=== PATIENT | female | born 1970 | race Caucasian/White ===

== ENCOUNTER 2022-04-03 10:30 | Emergency (ER) | payer BC ==
[2022-04-03] MEDS ORDERED: Zofran 4 MG/2 ML VIAL IV ONE ×3 (11:03→21:58)
[2022-04-03] MEDS ORDERED: Sodium Chloride 0.9% 1000 ML 1,000 ML IV STA (11:04)
[2022-04-03] MEDS ORDERED: Zofran 4 MG/2 ML VIAL ONE ×3 (11:07→21:53)
[2022-04-03] MEDS ORDERED: Sodium Chloride 0.9% 1000 ML 1,000 ML ONE (11:07)
--- NOTE | 2022-04-03 11:10 | ERPHSYRPT ---
- History of Present Illness Source: patient, other Exam Limitations: no limitations Patient Subjective Stated Complaint: pt here binge drinking for the last 5 days, she was at work and told a co worker she needed help. she has been sober for 6 years Triage Nursing Assessment: pt walked in with a co worker, anxious, poor historian, states she has been binge drinking for 5 days, denies being suicidal, face mask in place, skin w.d.p. resp easy, unsteady on feet at times Timing/Duration: day(s), gradual onset, worse Severity of Symptoms-Max: moderate Severity of Symptoms-Current: moderate Associated Symptoms: anxiety, frustrated Previous symptoms: same symptoms as today Hx Tetanus, Diphtheria Vaccination/Date Given: No Hx Influenza Vaccination/Date Given: Yes Hx Pneumococcal Vaccination/Date Given: No Immunizations Up to Date: Yes <JERMAINE BUENROSTRO - Last Filed: 04/03/22 18:38> <MARINO HUNT - Last Filed: 04/03/22 20:14> - History of Present Illness Time Seen by Provider: 04/03/22 11:03 Physician History: 51-year-old female with a history of GERD, alcoholism who has been sober for almost 6 years presented in the ER with a coworker after she confessed binge drinking for the last 5 days. She is drinking almost half a gallon of vodka daily. Patient reports she has been frustrated and had a lot of stress going on and started drinking to get some relief. She does not want to drink and does need some help. Denies any suicidal or homicidal ideation. Denies any drug use. Last drink was prior to arrival. (JERMAINE BUENROSTRO) Allergies/Adverse Reactions: No Known Drug Allergies Allergy (Unverified 04/03/22 10:52) Home Medications: No Reportable Medications [No Reported Medications] 04/03/22 [History] Travel Risk - International Travel Have you traveled outside of the country in past 3 weeks: No - Coronavirus Screening Are you exhibiting any of the following symptoms?: No - Vaccine Status Have you recieved a Covid-19 vaccination: Yes [employer]: Pfizer - Vaccination Dates Date of 2cond Vaccination (if applicable): 2020 <JERMAINE BUENROSTRO - Last Filed: 04/03/22 18:38> - Past Medical History Pertinent Past Medical History: No - Past Surgical History Past Surgical History: Yes Female Surgical History: Other Other Surgical History: ovaries removed - Social History Smoking Status: Never smoker Exposure to second hand smoke: No Drug Use: none Patient Lives Alone: No - Female History Hx Last Menstrual Period: post Hx Now: No <JERMAINE BUENROSTRO - Last Filed: 04/03/22 18:38> - Review of Systems Constitutional: No Symptoms Eyes: No Symptoms Ears, Nose, & Throat: No Symptoms Respiratory: No Symptoms Cardiac: No Symptoms Abdominal/Gastrointestinal: No Symptoms Genitourinary Symptoms: No Symptoms Musculoskeletal: No Symptoms Skin: No Symptoms Neurological: No Symptoms Psychological: Anxiety, Depression, Emotional Lability Endocrine: No Symptoms Hematologic/Lymphatic: No Symptoms Immunological/Allergic: No Symptoms <JERMAINE BUENROSTRO - Last Filed: 04/03/22 18:38> - Physical Exam General Appearance: no apparent distress, alert, anxiety Eyes, Ears, Nose, Throat Exam: normal ENT inspection, TMs normal, pharynx normal, moist mucous membranes Neck Exam: normal inspection, non-tender, supple, carotid bruit Respiratory Exam: normal breath sounds, lungs clear Cardiovascular Exam: regular rate/rhythm, normal heart sounds Gastrointestinal/Abdominal Exam: soft, normal bowel sounds, No tenderness Extremities Exam: normal inspection Current Suicidality: denies suicide plan Neurological Exam: alert, normal mood/affect, manager money II-XII nml as tested, oriented x 3 Appearance: appropriate appearance, appropriate insight, neat, no memory impairment Behavior/Eye Contact/Speech: alert & cooperative, good eye contact, normal speech Thoughts/Hallucinations: normal thought pattern, no apparent hallucination Skin Exam: normal color SpO2 Interpretation: normal SpO2: 97 O2 Delivery: Room Air <JERMAINE BUENROSTRO - Last Filed: 04/03/22 18:38> - Nursing Vital Signs Nursing Vital Signs: Initial Vital Signs Temperature 97.8 F 04/03/22 10:35 Pulse Rate 97 H 04/03/22 10:35 Respiratory Rate 18 04/03/22 10:35 Blood Pressure 148/96 04/03/22 10:35 O2 Sat by Pulse Oximetry 97 04/03/22 10:35 Pain Scale Pain Intensity 0 - Course Nursing assessment & vital signs reviewed: Yes <MARINO HUNT - Last Filed: 04/03/22 20:14> Ordered Tests: Active Orders 24 hr Category Date Time Status CBC W DIFF Stat Lab 04/03/22 11:03 Completed CMP Stat Lab 04/03/22 11:03 Completed CULTURE,URINE Stat Lab 04/03/22 11:06 Received ETHYL ALCOHOL Stat Lab 04/03/22 11:03 Completed LIPASE Stat Lab 04/03/22 11:04 Completed UA W/RFX CULTURE Stat Lab 04/03/22 11:06 Completed Urine Triage Profile Stat Lab 04/03/22 11:06 Completed Medication Summary Discontinued Medications Generic Name Dose Route Start Last Admin Trade Name Kiersten PRN Reason Stop Dose Admin Sodium Chloride 1,000 mls @ 999 mls/hr 04/03/22 11:04 04/03/22 13:03 Sodium Chloride 0.9% 1000 Ml IV 04/03/22 12:04 Infused .Q1H1M STA Infusion Sodium Chloride Confirm 04/03/22 11:07 Sodium Chloride 0.9% 1000 Ml Administered 04/03/22 11:08 Dose 1,000 mls @ ud .ROUTE .STK-MED ONE Lorazepam Confirm 04/03/22 18:29 Lorazepam 2 Mg/1 Ml 2 Mg Vial Administered 04/03/22 18:30 Dose 2 mg .ROUTE .STK-MED ONE Lorazepam 1 mg 04/03/22 19:04 04/03/22 19:05 Lorazepam 2 Mg/1 Ml 2 Mg Vial IV 04/03/22 19:05 1 mg STAT ONE Administration Ondansetron HCl 4 mg 04/03/22 11:03 04/03/22 11:10 Ondansetron Hcl 4 Mg/2 Ml Vial IV 04/03/22 11:04 4 mg STAT ONE Administration Ondansetron HCl Confirm 04/03/22 11:07 Ondansetron Hcl 4 Mg/2 Ml Vial Administered 04/03/22 11:08 Dose 4 mg .ROUTE .STK-MED ONE Ondansetron HCl 4 mg 04/03/22 17:33 04/03/22 17:35 Ondansetron Hcl 4 Mg/2 Ml Vial IV 04/03/22 17:34 4 mg STAT ONE Administration Ondansetron HCl Confirm 04/03/22 17:35 Ondansetron Hcl 4 Mg/2 Ml Vial Administered 04/03/22 17:36 Dose 4 mg .ROUTE .STK-MED ONE Lab/Rad Data: Laboratory Result Diagrams 04/03/22 11:03 04/03/22 11:03 Laboratory Results 04/03/22 04/03/22 04/03/22 Range/Units 19:00 11:06 11:06 WBC (4.0-10.5) x10^3/uL RBC (4.1-5.4) x10^6/uL Hgb (12.0-16.0) g/dL Hct (35-47) % MCV (78-100) fL MCH (26-32) pg MCHC (32-36) g/dL RDW (11.5-14.0) % Plt Count (150-450) x10^3/uL MPV (7.5-11.0) fL Gran % (36.0-66.0) % Immature Gran % (Auto) (0.00-0.4) % Nucleat RBC Rel Count (0.00-0.1) % Eos # (Auto) (0-0.5) x10^3/uL Immature Gran # (Auto) (0.00-0.03) x10^3u/L Absolute Lymphs (auto) (1.0-4.6) x10^3/uL Absolute Monos (auto) (0.0-1.3) x10^3/uL Absolute Nucleated RBC (0.00-0.01) x10^3u/L Lymphocytes % (24.0-44.0) % Monocytes % (0.0-12.0) % Eosinophils % (0.00-5.0) % Basophils % (0.0-0.4) % Absolute Granulocytes (1.4-6.9) x10^3/uL Basophils # (0-0.4) x10^3/uL Sodium (137-145) mmol/L Potassium (3.5-5.1) mmol/L Chloride (98-107) mmol/L Carbon Dioxide (22-30) mmol/L Anion Gap (5-15) MEQ/L BUN (7-17) mg/dL Creatinine (0.52-1.04) mg/dL Estimated GFR ML/MIN Glucose (74-106) mg/dL Calcium (8.4-10.2) mg/dL Total Bilirubin (0.2-1.3) mg/dL AST (14-36) U/L ALT (0-35) U/L Alkaline Phosphatase (38-126) U/L Serum Total Protein (6.3-8.2) g/dL Albumin (3.5-5.0) g/dL Lipase (23-300) U/L Urinalys Dipstick Clnc MAIN LAB Urine Color YELLOW (YELLOW) Urine Appearance CLEAR (CLEAR) Urine pH 6.5 (5-6) Ur Specific [employer] <=1.005 (1.005-1.025) POC Urine Protein Conf NEGATIVE (Negative) Urine Ketones NEGATIVE (NEGATIVE) Urine Nitrite NEGATIVE (NEGATIVE) Urine Bilirubin NEGATIVE (NEGATIVE) Urine Urobilinogen 0.2 (0-1) mg/dL Urine Leukocytes MODERATE (NEGATIVE) Urine WBC (Auto) 3-5 (0-5) /HPF Urine RBC (Auto) NONE (0-2) /HPF U Epithel Cells (Auto) NONE (FEW) /HPF Urine Bacteria (Auto) RARE (NEGATIVE) /HPF Urine RBC SMALL (0-5) Devin/ul Ur Culture Indicated? YES Urine Glucose NEGATIVE (NEGATIVE) mg/dL Urine Opiates Level NEGATIVE (NEGATIVE) Ur Methadone NEGATIVE (NEGATIVE) Urine Barbiturates NEGATIVE (NEGATIVE) Ur Phencyclidine (PCP) NEGATIVE (NEGATIVE) Urine Amphetamine NEGATIVE (NEGATIVE) U Benzodiazepine Level NEGATIVE (NEGATIVE) Urine Cocaine NEGATIVE (NEGATIVE) Urine Marijuana (THC) NEGATIVE (NEGATIVE) Ethyl Alcohol (0-10) mg/dL Influenza Type A Ag NEGATIVE (NEGATIVE) Influenza Type B Ag NEGATIVE (NEGATIVE) RSV (PCR) NEGATIVE (Negative) SARS-CoV-2 (PCR) NEGATIVE (NEGATIVE) 04/03/22 04/03/22 04/03/22 Range/Units 11:04 11:03 11:03 WBC 8.2 (4.0-10.5) x10^3/uL RBC 4.57 (4.1-5.4) x10^6/uL Hgb 14.2 (12.0-16.0) g/dL Hct 41.6 (35-47) % MCV 91.0 (78-100) fL MCH 31.1 (26-32) pg MCHC 34.1 (32-36) g/dL RDW 13.5 (11.5-14.0) % Plt Count 284 (150-450) x10^3/uL MPV 9.2 (7.5-11.0) fL Gran % 57.8 (36.0-66.0) % Immature Gran % (Auto) 0.2 (0.00-0.4) % Nucleat RBC Rel Count 0.0 (0.00-0.1) % Eos # (Auto) 0.01 (0-0.5) x10^3/uL Immature Gran # (Auto) 0.02 (0.00-0.03) x10^3u/L Absolute Lymphs (auto) 2.87 (1.0-4.6) x10^3/uL Absolute Monos (auto) 0.49 (0.0-1.3) x10^3/uL Absolute Nucleated RBC 0.00 (0.00-0.01) x10^3u/L Lymphocytes % 35.2 (24.0-44.0) % Monocytes % 6.0 (0.0-12.0) % Eosinophils % 0.1 (0.00-5.0) % Basophils % 0.7 (0.0-0.4) % Absolute Granulocytes 4.71 (1.4-6.9) x10^3/uL Basophils # 0.06 (0-0.4) x10^3/uL Sodium 146 H (137-145) mmol/L Potassium 3.8 (3.5-5.1) mmol/L Chloride 108 H (98-107) mmol/L Carbon Dioxide 23 (22-30) mmol/L Anion Gap 18.9 H (5-15) MEQ/L BUN 9 (7-17) mg/dL Creatinine 0.48 L (0.52-1.04) mg/dL Estimated GFR > 60.0 ML/MIN Glucose 112 H (74-106) mg/dL Calcium 9.5 (8.4-10.2) mg/dL Total Bilirubin 0.40 (0.2-1.3) mg/dL AST 61 H (14-36) U/L ALT 41 H (0-35) U/L Alkaline Phosphatase 76 (38-126) U/L Serum Total Protein 7.7 (6.3-8.2) g/dL Albumin 4.7 (3.5-5.0) g/dL Lipase 104 (23-300) U/L Urinalys Dipstick Clnc Urine Color (YELLOW) Urine Appearance (CLEAR) Urine pH (5-6) Ur Specific [employer] (1.005-1.025) POC Urine Protein Conf (Negative) Urine Ketones (NEGATIVE) Urine Nitrite (NEGATIVE) Urine Bilirubin (NEGATIVE) Urine Urobilinogen (0-1) mg/dL Urine Leukocytes (NEGATIVE) Urine WBC (Auto) (0-5) /HPF Urine RBC (Auto) (0-2) /HPF U Epithel Cells (Auto) (FEW) /HPF Urine Bacteria (Auto) (NEGATIVE) /HPF Urine RBC (0-5) Devin/ul Ur Culture Indicated? Urine Glucose (NEGATIVE) mg/dL Urine Opiates Level (NEGATIVE) Ur Methadone (NEGATIVE) Urine Barbiturates (NEGATIVE) Ur Phencyclidine (PCP) (NEGATIVE) Urine Amphetamine (NEGATIVE) U Benzodiazepine Level (NEGATIVE) Urine Cocaine (NEGATIVE) Urine Marijuana (THC) (NEGATIVE) Ethyl Alcohol 416 H (0-10) mg/dL Influenza Type A Ag (NEGATIVE) Influenza Type B Ag (NEGATIVE) RSV (PCR) (Negative) SARS-CoV-2 (PCR) (NEGATIVE) - Progress Progress: improved, re-examined Counseled pt/family regarding: lab results, diagnosis, need for follow-up, rad results <JERMAINE BUENROSTRO - Last Filed: 04/03/22 18:38> - Progress Progress Note: 04/03/22 18:38 51-year-old is evaluated for binge drinking. Blood alcohol level is more than 400. [facility] is contacted and will be possible transfer. Care is transferred to Dr. Hunt at shift change for final disposition. (JERMAINE BUENROSTRO) <JERMAINE BUENROSTRO - Last Filed: 04/03/22 18:38> - Departure Departure Disposition: Transfer (Patient will be transferred to recovery [facility] in [place].) Critical Care Time: No <MARINO HUNT - Last Filed: 04/03/22 20:14> - Departure Clinical Impression: Alcohol abuse Condition: Fair Referrals: DOCTOR,NO FAMILY [Primary Care Provider] - Follow up/PCP as directed Instructions: Alcohol Abuse and Alcoholism (DC)
[2022-04-03 11:18] LABS: Absolute Neutrophil Ct (ANC) 4.71 x10^3/uL (1.4-6.9); Basophil (Absolute #) 0.06 x10^3/uL (0-0.4); Eosinophil % 0.1 % (0.00-5.0); Eosinophil (Absolute #) 0.01 x10^3/uL (0-0.5); Hematocrit 41.6 % (35-47); Hemoglobin 14.2 g/dL (12.0-16.0); Lymphocyte (Absolute #) 2.87 x10^3/uL (1.0-4.6); Lymphocytes % 35.2 % (24.0-44.0); Mean Corpuscular Hemoglobin 31.1 pg (26-32); Mean Corpuscular Hgb Concent. 34.1 g/dL (32-36); Mean Platelet Volume 9.2 fL (7.5-11.0); Monocyte (Absolute #) 0.49 x10^3/uL (0.0-1.3); Neutrophil % 57.8 % (36.0-66.0); Platelet Count 284 x10^3/uL (150-450); Red Blood Count 4.57 x10^6/uL (4.1-5.4); Red Cell Distribution Width 13.5 % (11.5-14.0); White Blood Count 8.2 x10^3/uL (4.0-10.5)
[2022-04-03 11:25] LABS: ALBUMIN 4.7 g/dL (3.5-5.0); ALKALINE PHOSPHATASE 76 U/L (38-126); ANION GAP 18.9 MEQ/L (5-15); BLOOD UREA NITROGEN 9 mg/dL (7-17); CHLORIDE 108 mmol/L (98-107); Calcium 9.5 mg/dL (8.4-10.2); Carbon Dioxide 23 mmol/L (22-30); Creatinine 1 0.48 mg/dL (0.52-1.04); EST GLOMERULAR FILTRATION RATE > 60.0 ML/MIN; Glucose 112 mg/dL (74-106); Potassium 3.8 mmol/L (3.5-5.1); SGOT/AST 61 U/L (14-36); SGPT/ALT 41 U/L (0-35); SODIUM 146 mmol/L (137-145); Total Protein 7.7 g/dL (6.3-8.2)
[2022-04-03 11:35] LABS: ETHYL ALCOHOL 416 mg/dL (0-10)
[2022-04-03 13:08] LABS: Amphetamine,Urine NEGATIVE (NEGATIVE); Barbiturate,Urine NEGATIVE (NEGATIVE); Benzodiazepine,Urine NEGATIVE (NEGATIVE); Cocaine,Urine NEGATIVE (NEGATIVE); Methadone,Urine NEGATIVE (NEGATIVE); Opiate,Urine NEGATIVE (NEGATIVE); PCP,Urine NEGATIVE (NEGATIVE); THC,Urine NEGATIVE (NEGATIVE)
[2022-04-03 13:09] LABS: Appearance CLEAR (CLEAR); Bilirubin NEGATIVE (NEGATIVE); Dipstick done @ ? MAIN LAB; Glucose NEGATIVE (NEGATIVE); Ketones NEGATIVE (NEGATIVE); Nitrite NEGATIVE (NEGATIVE); Ph 6.5 (5-6); Protein,Urine Dip NEGATIVE (Negative); RBC SMALL Ery/ul (0-5); Specific Gravity <=1.005 (1.005-1.025); Urobilinogen 0.2 mg/dL (0-1)
[2022-04-03 13:15] LABS: Bacteria RARE /HPF (NEGATIVE); Urine Cultured Indicated? YES
[2022-04-03] MEDS ORDERED: Ativan 2 MG/1 ML VIAL ONE ×2 (18:29→21:53)
[2022-04-03] MEDS ORDERED: Ativan 2 MG/1 ML VIAL IV ONE ×2 (19:04→21:46)
[2022-04-03 19:58] LABS: INFLUENZA A NEGATIVE (NEGATIVE); INFLUENZA B NEGATIVE (NEGATIVE); RESPIRATORY SYNCTIAL VIRUS NEGATIVE (Negative); SARS-CoV-2 Xpert Express NEGATIVE (NEGATIVE)
[2022-04-03] MEDS ORDERED: Zofran 2 MG/ML MULTI DOSE VIAL 20 ML IV STA (21:44)
[2022-04-03] MEDS ORDERED: ROCEPHIN 1 Gm-D5w 50 ml Bag** 1 G/50 ML IVPB IV STA (21:50)
[2022-04-03] MEDS ORDERED: ROCEPHIN 1 Gm-D5w 50 ml Bag** 1 G/50 ML IVPB IV ONE (21:53)
[2022-04-03 22:07] VITALS: BP 149/92; PULSE 94; O2SAT 95
== END 2022-04-03 22:40 ==
LOC: ED 10:30
DX: F10.129 Alcohol abuse with intoxication, unspecified (principal); Y90.8 Blood alcohol level of 240 mg/100 ml or more
CPT/HCPCS: 0241U; 36000; 36415; 80053; 80307; 81015; 83690; 85025; 87077; 87086; 87186; 96374; 96375; 96376; 99285; J0696; J2060; J2405; G0480